=== PATIENT | male | born 1980 | race Two or more races ===

== ENCOUNTER 2021-04-20 15:00 | Emergency (ER) | payer SELFPAY ==
--- NOTE | 2021-04-20 16:08 | EDM.PDOC ---
ED HPI GENERAL MEDICAL PROBLEM - General Chief Complaint: Neurological Problem Stated Complaint: POSS HEAT STROKE,RT SIDE FACIAL NUMBNESS Time Seen by Provider: 04/20/21 15:50 Source of Information: Reports: Patient, Other (friend ) History Limitations: Reports: Language Barrier (Patient speaks only Syrian) - History of Present Illness INITIAL COMMENTS - FREE TEXT/NARRATIVE: This 41-year-old male presents to the ED and he is Syrian-speaking only. He has with a treasury agent who was very good at translating British to Syrian for him. He reports that yesterday he started to appreciate drooping of his right upper eyelid and then appreciated drooling or with fluids running out the right side of his mouth. This morning his symptoms are much worse with obvious paralysis of the right side of his face and inability to close his right eye. He denies headache although he has a pressure in the mastoid area behind his right ear. He has no signs of herpes zoster on quick exam. He denies any visual acuity changes. He denies any problems with his balance. He has no problem dressing himself or feeding himself. No problems walking. He has no history of stroke or other cerebrovascular illness. Onset: Gradual Onset Date: 04/19/21 (First appreciated symptoms with right eye drooping yesterday p.m. and last evening started appreciate drooling or fluids running out the right side of his mouth without control) Duration: Hour(s):, Constant, Getting Worse Location: Reports: Face (Right facial weakness with drooling right side of face inability to close his right eye completely) Quality: Reports: Other (Right facial weakness with no other neurological deficit) Severity: Severe Improves with: Reports: None Worsens with: Reports: Other (Appreciates more drooling if he tries to drink fluids. Cannot suck) Context: Reports: Other (Spontaneous development of right facial paresis drooling and inability to close his right eye over the last 24 hours). Denies: Activity ( using a straw.), Exercise, Lifting, Sick Contact, Trauma Associated Symptoms: Reports: No Other Symptoms, Headaches (Pressure), Weakness (Right hemifacial weakness with inability to close his eye and asymmetric smile with face pulling to the left with smiling). Denies: Confusion, Chest Pain, Cough, cough w sputum, Diaphoresis ( behind his right ear over the mastoid process.), Fever/Chills, Loss of Appetite, Malaise, Nausea/Vomiting, Rash, Seizure, Shortness of Breath, Syncope Treatments TUBE CARRIER: Reports: Other (see below) Right Upper Neck Pain Score (Numeric/FACES): 3 - Related Data Allergies Allergy/AdvReac Type Severity Reaction Status Date / Time No Known Allergies Allergy Verified 04/20/21 15:12 Home Meds: Home Meds Dextran 70/Hypromellose [Artificial Tears Eye Drops] 30 ml OP Q6H #1 bottle 04/20/21 [Rx] Mineral Oil/Petrolatum Oint [Lacri-Lube S.O.P Oint] 1 applic OP BEDTIME #2 tube 04/20/21 [Rx] predniSONE [Prednisone] 20 mg PO BID #14 tablet 04/20/21 [Rx] valACYclovir HCl [valACYclovir] 1,000 mg PO TID #21 tablet 04/20/21 [Rx] Past Medical History - Past Health History Medical/Surgical History: Denies Medical/Surgical History - Infectious Disease History Infectious Disease History: Reports: Chicken Pox Social & Family History - Tobacco Use Tobacco Use Status *Q: Never Tobacco User - Caffeine Use Caffeine Use: Reports: Coffee, Energy Drinks, Soda - Recreational Drug Use Recreational Drug Use: No - Living Situation & Occupation Living situation: Reports: Occupation: Employed ED ROS GENERAL - Review of Systems Review Of Systems: See Below Constitutional: Reports: Malaise, Fatigue (To be at this more to the heat). Denies: Fever, Chills, Decreased Appetite, Weight Loss HEENT: Reports: Other (Pressure feeling behind his right ear over the mastoid pr ocess.). Denies: Glasses Respiratory: Reports: No Symptoms Cardiovascular: Reports: No Symptoms Endocrine: Reports: Fatigue GI/Abdominal: Reports: No Symptoms : Reports: No Symptoms Musculoskeletal: Reports: Neck Pain, Back Pain Skin: Reports: No Symptoms (Anginal.) Neurological: Reports: Headache (Right-sided headache more behind his right), Other (Appreciates inability to close his right eye completely. Appreciates drooling or fluids running out the right side of his mouth when he tries to eat or drink over the last 24 hours.) Psychiatric: Reports: No Symptoms Hematologic/Lymphatic: Reports: No Symptoms Immunologic: Reports: No Symptoms ED EXAM, NEURO - Physical Exam Exam: See Below Exam Limited By: No Limitations General Appearance: Alert, WD/WN, Anxious, Mild Distress, Other (Temperature is 36.4 degrees. Heart rate was 54 and sinus. Respiratory is 20 with O2 sats of 96% room air. BP 133/85.) Eye Exam: Bilateral Eye: Normal Inspection (Patient has obvious ptosis of his right upper eyelid and inability to close his right eye completely.), PERRL Ears: Normal TMs Throat/Mouth: Normal Inspection, Normal Lips, Normal Oropharynx Head Exam: Atraumatic, Normocephalic, Other (Rash along the right side of his face or head.) Neck: Normal Inspection, Supple, Non-Tender, Full Range of Motion. No: Lymphadenopathy (L), Lymphadenopathy (R) Respiratory/Chest: No Respiratory Distress, Lungs Clear, Normal Breath Sounds, No Accessory Muscle Use Cardiovascular: Normal Peripheral Pulses, Regular Rate, Rhythm, No Edema, No Gallop, No Murmur, No Rub GI/Abdominal: Normal Bowel Sounds, Soft, Non-Tender, No Organomegaly, No Mass, Pelvis Stable Neurological: Alert, Normal Dorsiflexion, Normal Plantar Flexion, Normal Gait, Normal Reflexes, Oriented x 3, Other (She has ptosis of his right upper eyelid with inability to close his right eye completely. He has involvement of the forehead on her right side with paresis when he lifts his eyebrow. He has an asymmetrical smile with his face pulling to the left with attempt to smile with right hemifacial droopin). No: Normal Mood/Affect, CN II-XII Intact DTR: 2+: Bicep (R), Bicep (L), Patella (R), Patella (L), Achilles (R), Achilles (L) Extremities: Normal Inspection, Normal Range of Motion, Non-Tender, No Pedal Edema Psychiatric: Anxious Skin Exam: Warm, Dry, Intact (Only anxious), Normal Color, No Rash Course - Vital Signs Last Recorded V/S: Last Vital Signs Temp 36.4 C 04/20/21 15:16 Pulse 54 L 04/20/21 15:16 Resp 20 04/20/21 15:16 BP 133/85 04/20/21 15:16 Pulse Ox 96 04/20/21 15:16 - Radiology Interpretation Free Text/Narrative:: 41-year-old male of Syrian-speaking descent and speaks only Syrian presents to the ED with an qlikview developer. She did a very good job in terms of communicating with the patient. Patient presents with right hemifacial weakness of 24 hours duration and inability to close his right eye completely first noticed yesterday afternoon. The remainder of his neuro exam is normal. Patient has an acute Bryant's palsy. He will be treated with valacyclovir 1 g 3 times daily for 1 week and prednisone 20 mg twice daily for 1 week. He will patch his eye closed overnight and use Lacri-Lube ointment on the inner lower eyelid every night at bedtime. He will use artificial tears 2 to 3 drops every 4-6 hours during the daytime. He does not have a follow-up physician. He was advised that he should be followed by physician in approximately 7 to 10 days time. He will see be at about making an appointment with either Dr. Sammie Saldivar or Dr. Olimpia José on the family medicine unit. Departure - Departure Time of Disposition: 16:08 Disposition: Home, Self-Care 01 Condition: Fair Clinical Impression: Bryant's palsy - Discharge Information *PRESCRIPTION DRUG MONITORING PROGRAM REVIEWED*: Not Applicable *COPY OF PRESCRIPTION DRUG MONITORING REPORT IN PATIENT SHAHID: Not Applicable Prescriptions: Dextran 70/Hypromellose [Artificial Tears Eye Drops] 30 ml OP Q6H #1 bottle Mineral Oil/Petrolatum Oint [Lacri-Lube S.O.P Oint] 1 applic OP BEDTIME #2 tube predniSONE [Prednisone] 20 mg PO BID #14 tablet valACYclovir HCl [valACYclovir] 1,000 mg PO TID #21 tablet Instructions: Bryant Palsy, Adult Referrals: PCP,None [Primary Care Provider] - Forms: ED Department Discharge Additional Instructions: Evaluation in the emergency room today in regards to development of right upper eyelid weakness and inability to open the eye completely and associated drooping of the right side of the face with loss of fluids i.e. drooling when you attempt to take in fluids from the right side of your face. By history symptoms started yesterday. The remainder of your neurological exam is completely normal. Current illness is called Bryant's palsy which is a viral infection of the 7th cranial nerve on the right side of your face. As we discussed medication is antiviral medication valacyclovir. Take 1 tablet 3 times daily for the next 7 days. Second medication is prednisone 20 mg usually with breakfast and supper for the next 7 days to relieve inflammation around the nerve. Lacri-Lube ointment applied to the inner right lower eyelid every night at bedtime and tape eye closed overnight until nerve function returns where you can close her eye completely on your own. Of note this may take several weeks. Suggest use of artificial tears 2 drops to the right eye every 4-6 hours while awake to prevent drying of the cornea. Symptoms of Bryant's palsy will usually improve over the next several weeks often between 3 and 12 weeks. Sepsis Event Note (ED) - Evaluation Sepsis Screening Result: No Definite Risk - Focused Exam Vital Signs: Vital Signs Temp Pulse Resp BP Pulse Ox 04/20/21 15:16 36.4 C 54 L 20 133/85 96
== END 2021-04-20 17:02 | disposition home or self-care (01) ==
LOC: JD.ED 15:00
DX: G51.0 Bell's palsy (principal)
CPT/HCPCS: 99284